=== PATIENT | female | born 1960 | race Caucasian/White ===

== ENCOUNTER 2024-02-24 09:38 | Outpatient (AMB) | payer OTHER, SELFPAY ==
[2024-02-24 10:21] VITALS: BP 127/71; PULSE 92; RESP 18; TEMP 36.2; O2SAT 99; BMI 51.0
--- NOTE | 2024-02-24 10:21 | PD.ORTHCLVIS ---
Vital signs 02/24/24 10:21 Height 1.7 m Height Method Stated Weight 147.673 kg Weight Measurement Method Standing Scale BMI 51.0 BP 127/71 Blood Pressure Source Automatic Cuff Blood Pressure Location Right Upper Arm Position Sitting Respiration 18 Pulse 92 Pulse Source Monitor Temp 97.2 F Temp Source Temporal Artery Scan Pulse Oximetry (%) 99 Oxygen Delivery Method Room Air Med/Allergies Allergies & Medications Allergies levofloxacin Allergy (Severe, Verified 02/24/24 10:21) Hives pregabalin [From Lyrica] Allergy (Severe, Verified 02/24/24 10:21) Difficulty Breathing latex Allergy (Mild, Verified 02/24/24 10:21) Hives UNKNOWN ANTIBIOTIC Allergy (Severe, Uncoded 02/24/24 10:21) Swelling of Lip/Tongue/Throat Medication Reconciliation sertraline 100 mg tablet (Zoloft) 150 mg PO HS #0 tabs 05/23/15 [History Confirmed 11/29/23] losartan 100 mg tablet 100 mg PO QDAY 12/23/20 [History Confirmed 11/29/23] furosemide 20 mg tablet (Lasix) 20 mg PO QDAY PRN Edema 07/29/23 [History Confirmed 11/29/23] buprenorphine HCl 150 mcg buccal film (Belbuca) 150 mcg buccal Q12H 08/30/23 [History Confirmed 11/29/23] hydrocodone 10 mg-acetaminophen 325 mg tablet 1 tab PO Q8H PRN Pain 08/30/23 [History Confirmed 11/29/23] flecainide 100 mg tablet 100 mg PO BID 08/31/23 [History Confirmed 11/29/23] lidocaine 1.8 % topical patch (ZTlido) 1 patch topical QDAY 08/31/23 [History Confirmed 11/29/23] cyclobenzaprine 5 mg tablet 5 mg PO QHS PRN muscle spasm #30 tabs 09/09/23 [Rx Confirmed 11/29/23] brexpiprazole 0.5 mg tablet (Rexulti) 0.5 mg PO QDAY 02/24/24 [History Confirmed 02/24/24] duloxetine 30 mg capsule,delayed release (Cymbalta) 30 mg PO QDAY 02/24/24 [History Confirmed 02/24/24] Subjective Visit Visit for: follow up visit Immunization / Flu Flu Vaccine in the Last 12 Months: No Flu Vaccine Exclusion Criteria: No Exclusion Criteria History of Present Illness Chief complaint: FOLLOW UP Patient is a pleasant 62-year-old female who is 3 months status post left patellar resurfacing. She is doing well. She was doing much better until 3 days ago when she twisted her knee. She still able to ambulate but has pain on the lateral aspect of her knee. Pain Pain level (0-10): 2 Pain duration: ON AND OFF Pain location: inside (medial) and outside (lateral) Pain quality: sharp, dull and aching Pain timing: increases with activity Associated signs & symptoms: numbness, weakness and stiffness Ambulatory data Ambulatory device: none Treatments Improvement with previous injections: No Improvement with PT: No Improvement with NSAIDS: no Review of Systems Review of Systems: All systems negative unless otherwise noted in HPI. Exam Exam Patient is in no acute distress and is cooperative with the examination today. Patient has a normal mood and affect. Breathing is nonlabored. In no respiratory distress. Bilateral extremities were evaluated and demonstrates sensation intact to light touch. Palpable pedal pulses are present. No significant edema is present. Left knee incision is clean dry intact. Her patella tracks centrally. Knee feels stable varus valgus stress as well as AP translation Assessment and Plan Problem List (1) History of total bilateral knee replacement: Status: Acute Plan: Patient is a pleasant 62-year-old female with bilateral knee pain with a painful left total knee replacement. She is status post left knee patellar resurfacing. We obtained new x-rays and she has a total knee replacement in good alignment and position. I do not see any fracture and her patella is well centered. We will order new x-rays has been a while. She reports the pain has not really improved significantly. I am ordering an ESR and CRP to rule out infection as well Office Procedures GNS Level of Care Nursing/Assessment Patient Status: Established Patient Nursing Assessment/Reassesment: Medication Reconciliation, Update PMH in EMR and Vital Signs Coordination of Care: Complex Care and Chronic Disease 1-5, Education Complex Pt/Fam, Consent,records obtained, informed consent and Staff clarify orders Established Patient Charge Established Patient Point Assignment: 90 Established Patient Point Charge: EP Level 3 (80-115) Past Medical History Past Medical History Have you ever been diagnosed with any of the following: Neurological Problems Seizures: No Cardiology Problems Cardiac Arrhythmia: Yes Atrial Fibrillation: Yes Heart Murmur: Yes Congestive Heart Failure: No Edema: Yes Cellulitis: No (BRUISING TO ROSALINO ARM) Hypertension: Yes Varicose Veins: Yes Respiratory Problems Chronic Obstructive Pulmonary Disease (COPD): No Asthma: Yes Pneumonia: No Pulmonary Embolism: No Sleep Apnea: No Stomache/Intestinal Problems Hepatitis: No Gall Bladder Disease: No Hemorrhoids: No Obesity: Yes Genital/Urinary Problems Renal Disease: No Reproductive Problems Pelvic Inflammatory Disease: No Previous Pregnancies: Yes Musculoskeletal Problems Arthritis: Yes Fibromyalgia: Yes Fractures: Yes (right shoulder) Head,Eye,Nose,Throat Problems Cataracts: Yes Endocrine Problems Diabetes Mellitus Type 1: No Diabetes Mellitus Type 2: No Hypothyroidism: No Blood Problems Anemia: Yes Clotting Problems: No Psychologic Problems Depression: Yes Anxiety: Yes Attention Deficit Hyperactivity Disorder: Yes Other Problems Hospitalization: Yes Down Syndrome: No Developmental Delay: No Shingles: No Falls: No Blood Transfusions: No Blood Transfusion Reaction: No Anesthesia Reactions: No Chemotherapy: No Radiation Therapy: No MRSA: No Chicken Pox: Yes Measles: Yes Mumps: Yes Cancer: No Surgical History Pacemaker: No
== END 2024-02-24 10:51 | disposition home or self-care (01) ==
LOC: HODSRG 09:38
PROVIDERS: Supervising Provider Orthopaedic Surgery Adult Reconstructive Orthopaedic Surgery; Visit Provider Orthopaedic Surgery Adult Reconstructive Orthopaedic Surgery
DX: Z96.652 Presence of left artificial knee joint (principal); M25.562 Pain in left knee; M25.561 Pain in right knee; I10 Essential (primary) hypertension; I48.91 Unspecified atrial fibrillation
CPT/HCPCS: 99213; G0463

== ENCOUNTER → 2024-03-28 | Outpatient (CLI) | payer OTHER, SELFPAY ==
[2024-03-28 17:38] LABS: Basophils # (Auto) 0.1 Thou/mm3 (0.0-0.2); Basophils % (Auto) 1 % (0-2.5); Eosinophils # (Auto) 0.1 Thou/mm3 (0.0-0.5); Eosinophils % (Auto) 1 % (0-10); Hematocrit 38.9 % (36.0-46.0); Hemoglobin 12.1 g/dL (12.0-16.0); Immature Granulocytes % (Auto) 0 % (0-0); Immature Granulocytes Auto 0.02 Thou/mm3 (0.00-0.00); Lymphocytes # (Auto) 1.1 Thou/mm3 (1.0-4.8); Lymphocytes % (Auto) 15 % (10-50); Mean Corpuscular HGB Conc 31.1 g/dl (31.0-37.0); Mean Corpuscular Hemoglobin 26.1 pg (25.0-35.0); Mean Corpuscular Volume 84 fL (80-100); Monocytes # (Auto) 0.6 Thou/mm3 (0.0-0.8); Monocytes % (Auto) 7 % (0-12); Neutrophils # (Auto) 5.8 Thou/mm3 (1.8-7.7); Neutrophils % (Auto) 76 % (37-80); Nucleated Red Blood Cell % 0 /100 WBC (0); Platelet Count 251 Thou/mm3 (140-440); RDW Standard Deviation 44.8 fL (36.4-46.3); Red Blood Count 4.64 Miln/mm3 (4.00-5.20); White Blood Count 7.7 Thou/mm3 (3.6-11.0)
[2024-03-28 18:15] LABS: Sed Rate (ESR) 46 mm/hr (0-30)
[2024-03-28 18:37] LABS: Uric Acid 6.8 mg/dL (3.1-7.8)
[2024-03-29 02:59] LABS: RA Screen Negative (Negative)
[2024-04-05 07:01] LABS: ANA Screen, IFA NEGATIVE (NEGATIVE)
== END | disposition home or self-care (01) ==
PROVIDERS: PCP Internal Medicine; Referring Provider Podiatrist; Visit Provider Podiatrist
DX: M06.872 Other specified rheumatoid arthritis, left ankle and foot (principal)
CPT/HCPCS: 36415; 84550; 85025; 85652; 86038; 86430